=== PATIENT | male | born 1950 | race Caucasian/White ===

== ENCOUNTER 2016-07-29 11:10 | Emergency (ER) | payer MEDICARE, OTHER ==
--- NOTE | 2016-07-29 12:31 | RAD ---
LEFT FOOT 3 VIEWS: Date: 07/29/16 Comparison made with the 10/02/15 study. FINDINGS: There has been a prior amputation of the first and second toes at the level of the mid metatarsals. There are no current findings of osteomyelitis. The appearance of the remaining first and second met atarsals has not changed. There may have been old injury or infection to the third metatarsal, but i t appearance has not changed. There is perhaps a little more fragmentation between the third metatar elieser head and the base of the proximal phalanx of the third toe than was present on the prior study. Hammertoe deformities are present in the third, fourth, and fifth toes, with medial deviation of tho se toes. No new bony lesions were detected. No acute fractures were seen. A small calcaneal spur was noted as usual, as well as arterial calcifications. There is perhaps a little more soft tissue swel ling dorsally today than before. IMPRESSION: 1. No acute bony changes. Old changes as noted above. 2. Slightly more fragmentation of bone in the third metatarsophalangeal joint which could be due to some degeneration over time. There is no overt destruction here that would make me think infection at this point. POS: FRANKLIN
[2016-07-29 12:39] LABS: #Basophils 0.1 thou/uL (0.0-0.2); #Eosinphils 0.2 thou/uL (0.0-0.7); #Lymphocytes 2.3 thou/uL (1.20-3.40); #Monocytes 0.6 thou/uL (0.11-0.59); #Neutrophils 6.7 thou/uL (1.40-6.50); %Basophils 0.8 % (0.0-1.0); %Eosinophils 2.4 % (0.0-10.0); %Monocytes 6.4 % (0.0-10.0); Hematocrit 41.5 % (42.0-52.0); Mean Platelet Volume 8.5 fL (7.4-10.4); Red Blood Cell (RBC) Count 4.56 mill/uL (4.70-6.10); White Blood Cell (WBC) Count 9.9 thou/uL (4.8-10.8)
[2016-07-29 12:54] LABS: ALT (SGPT) 20 U/L (0-55); AST (SGOT) 18 U/L (5-34); Alkaline Phosphatase 95 U/L (40-150); Anion Gap 14 mmol/L (10-20); BUN (Urea Nitrogen) 32 mg/dL (8.4-25.7); Bilirubin, Total 0.4 mg/dL (0.2-1.2); Calc. Creatinine Clearance 0 mL/min (70-130); Calcium 9.3 mg/dL (7.8-10.44); Carbon Dioxide 24 mmol/L (23-31); Chloride 104 mmol/L (98-107); Estimated GFR-MDRD 28; Globulin 3.6 g/dL (2.4-3.5); Protein, Total 7.1 g/dL (5.8-8.1)
[2016-07-29 13:03] LABS: Bilirubin Negative (Negative); Blood, Urine Trace (Negative); Glucose, Urine (Dipstick) 500 mg/dL (Negative); Ketone, Urine Negative (Negative); Nitrite Negative (Negative); Protein, Urine (Dipstick) > or equal to 300 mg/dL (Neg-Trace); Urobilinogen 0.2 mg/dL (0.2-1.0)
[2016-07-29 13:16] LABS: Bacteria/HPF Rare-Few HPF (None Seen); RBC/HPF 0-3 HPF (0-3); Squamous Epithelial 0-3 HPF (0-3)
[2016-07-29] MEDS ORDERED: Piperacillin/Tazobactam 3.375 GM VIAL ONE (13:30)
[2016-07-29] MEDS ORDERED: Sodium Chloride 0.9% 100 ML ONE (13:31)
[2016-07-29] MEDS ORDERED: HYDROcodone/Acetaminophen 5/325 mg Tablet ONE (14:29)
--- NOTE | 2016-07-29 15:17 | ERRECORD ---
[facility] EMERGENCY RECORD HPI FOOT (12:20 JPIP) CHIEF COMPLAINT: Patient presents for evaluation of pain, to the left foot, Patient presents for evaluation of swelling, to the left foot, Patient presents for evaluation of tenderness, to the left foot, Patient presents for evaluation of inability to bear weight, to the left foot. HISTORIAN: History provided by patient. MECHANISM OF INJURY: Unknown mechanism. LOCATION: Symptoms are localized, most severe to arch and plantar area. QUALITY: Pain is dull in nature. SEVERITY: Current severity of pain rated as 5/10. TIME COURSE: Gradual onset of symptoms, 4, days priror to arrival, Symptoms are worsening, are constant. ASSOCIATED WITH: No associated ankle pain, No associated coolness to touch, Associated with erythema, No associated fever, Associated with inability to ambulate, for 1 day, Associated with inability to bear weight, for 1 day, No associated open wounds, Associated with warmth. EXACERBATED BY: Patient's condition exacerbated by walking. RELIEVED BY: Patient's condition relieved by nothing. ROS (12:21 JPIP) CONSTITUTIONAL: Historian denies chills, denies fever. CARDIOVASCULAR: Historian denies chest pain. RESPIRATORY: Historian denies cough, denies shortness of breath. GI: Historian denies nausea, denies vomiting. MUSCULOSKELETAL: Historian reports arthralgias, reports joint swelling, reports myalgias. SKIN: Historian reports skin changes. NEUROLOGIC: Historian denies mental status changes. NOTES: All systems reviewed, negative except as described above. PAST MEDICAL HISTORY MEDICAL HISTORY: , Tetanus immunization up to date, Pneumococcal vaccine up to date, REFLUX, Past medical history includes cardiac history, myocardial infarction, Past medical history includes history of diabetes, Type II, on insulin, Past medical history includes history of hypertension, Patient is compliant, Past medical history includes history of malignancy, carcinoid, LEFT LOWER EXTREMITY. BRADYCARDIA. (11:21 JSMI) Notes: +nephropathy. 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 . (11:21 JSMI) PSYCHIATRIC HISTORY: No previous psychiatric history. REVIEWED 10/02/15. (11:21 JSMI) &a-1R&a+25V*p+0X*o5052W*c202B*c15G*c2P*p-0X&a-25V&a+1R Name: Davis Finney : 1950 M66 MedRec: [id number] AcctNum: [id number] Prepared: MonJul 29, 2016 15:15 by Interface Page 1 of 5 pMD [facility] EMERGENCY RECORD SOCIAL HISTORY: Patient has no smoking history, Patient denies alcohol use, Patient denies drug use. (11:21 JSMI) FAMILY HISTORY: Family history is non-contributory to this case. REVIEWED 10/02/15. (11:21 JSMI) NOTES: Nursing records reviewed, Medication list reviewed. (12:25 JP) KNOWN ALLERGIES No Known Drug Allergies traMADol (Unconfirmed): - HEADACHE CURRENT MEDICATIONS (11:17 JSMI) NexIUM: CAPSULE,DELAYED RELEASE (ENTERIC COATED) : Strength - 40 mg : ORAL Patient Dose: Unknown. lisinopril: TABLET : Strength - 40 mg : ORAL Patient Dose: Unknown. hydrochlorothiazide: TABLET : Strength - 25 mg : ORAL Patient Dose: Unknown. Levemir FlexTouch: INSULIN PEN (ML) : Strength - 100 unit/mL (3 mL) : SUBCUTANEOUS Patient Dose: Unknown. hydrALAZINE: TABLET : Strength - 25 mg : ORAL Patient Dose: Unknown. amLODIPine: TABLET : Strength - 10 mg : ORAL Patient Dose: Unknown. meTOPROLOL tartrate: TABLET : Strength - 100 mg : ORAL Patient Dose: Unknown. clindamycin HCl: CAPSULE : Strength - 300 mg : ORAL Patient Dose: 1 cap(s) Oral 3 times a day. VITAL SIGNS VITAL SIGNS: BP: 177/86, Pulse: 83, Resp: 18, Temp: 98.1 (Oral), Pain: 5, O2 sat: 96 on Room Air, Time: 07/29/2016 11:18. (11:18 JSMI) BP: 166/80, Pulse: 78, Resp: 18, O2 sat: 97 on Room Air, Time: 07/29/2016 12:15. (12:15 [facility]) BP: 166/80, Pulse: 72, Resp: 16, Pain: 5, O2 sat: 98 on ra, Time: 07/29/2016 12:25. (12:25 JSMI) BP: 175/78, Pulse: 67, Resp: 18, Pain: 4, O2 sat: 98 on Room Air, Time: 07/29/2016 13:30. (13:30 AHOO) BP: 200/90, Pulse: 64, Resp: 18, Temp: 98.1 (Oral), Pain: 2, O2 sat: 97 on Room Air, Time: 07/29/2016 14:31. (14:31 AHOO) PHYSICAL EXAM (12:22 JPIP) &a-1R&a+25V*p+0X*[id number]*c202B*c15G*c2P*p-0X&a-25V&a+1R Name: Davis Finney : 1950 M66 MedRec: [id number] AcctNum: [id number] Prepared: MonJul 29, 2016 15:15 by Interface Page 2 of 5 pMD [facility] EMERGENCY RECORD CONSTITUTIONAL: Vital Signs Reviewed, Patient afebrile, Pulse normal, Blood pressure, hypertensive, Respiratory rate normal, Patient appears, poorly groomed, Patient appears, in mild pain distress, Patient alert and oriented to person, place and time, Nursing notes reviewed. HEAD: Head exam included findings of head atraumatic, normocephalic. EYES: Eye exam included findings of eyelids normal to inspection, Conjunctiva normal, Sclera normal, no periorbital ecchymosis, no periorbital edema, no periorbital erythema. NECK: Neck exam included findings of normal range of motion, Trachea midline, no cervical adenopathy. RESPIRATORY CHEST: Respiratory exam included findings of no respiratory distress, Breath sounds clear, No wheezing, No rales, No rhonchi, Breath sounds not absent, Breath sounds not diminished. CARDIOVASCULAR: Cardiovascular exam included findings of heart rate regular rate and rhythm, Heart sounds normal. UPPER EXTREMITY: Upper extremity exam included findings of inspection normal, Range of motion normal. LOWER EXTREMITY: Lower extremity exam included findings of inspection abnormal, swollen left foot, +plantar erythema and TTP. both feet are dirt encrusted., Range of motion, capillary refill less than 2 seconds, Foot exam shows, surgical amputation of the 1st and 2nd toes. +swelling + erythema of the arch and anterior calcaneus, skin is intact, no DC. NEURO: [place] coma scale 15, no focal motor deficits. SKIN: Skin exam included findings of skin warm, dry, and normal in color, changes to the skin of his left foot. PSYCHIATRIC: Normal affect. RADIOLOGYINTERPRETATION (12:27 JPIP) LOWER EXTREMITIES: Foot films, of the left foot show, degenerative joint disease, Other findings: +STS, amputation of 1st and 2nd toes. MEDICATION ADMINISTRATION SUMMARY Drug Name: [place], Dose Ordered: 5 mg, Route: Oral, Status: Given, Time: 14:30 07/29/2016, Drug Name: Zosyn, Dose Ordered: 3.375 g, Route: IV Piggy Back, Status: Given, Time: 13:42 07/29/2016, Drug Name: Normal Saline, Dose Ordered: 1000 mL/hr, Route: IV Fluid Infusion, Status: Given, Time: 13:23 07/29/2016, Detailed record available in Medication Service section. DOCTOR NOTES (14:22 JPIP) TEXT: Discussed findings with patient and spouse, questions answered. Precautions given. Patient states he did not take his insulin or his blood pressure &a-1R&a+25V*p+0X*c0656P*c202B*c15G*c2P*p-0X&a-25V&a+1R Name: Davis Finney : 1950 M66 MedRec: [id number] AcctNum: [id number] Prepared: MonJul 29, 2016 15:15 by Interface Page 3 of 5 pMD [facility] EMERGENCY RECORD meds this AM. PROBLEM LIST No recorded problems DIAGNOSIS DIFFERENTIAL: Based on history, exam and ancillary studies if indicated: there is no evidence for fracture, there is no evidence for dislocation, there is no evidence for sprain, Impression: gout, Impression: left foot, there is no evidence for skin disruption, there is no evidence for DVT, Impression: Most likely gout exacerbation, DDX includes possible cellulitis, there is no evidence for systemic illness, there is no evidence for toxicity, there is no evidence for sepsis, there is no evidence for systemic inflammatory response syndrome, Impression: diabetes, Diagnoses considered are not limited to those documented above. (13:51 JPIP) FINAL: PRIMARY: GOUT UNSPECIFIED, ADDITIONAL: diabetes mellitis, renal insufficiency, UTI. (13:54 JPIP) PRESCRIPTION colchicine oral: TABLET : 0.6 mg : ORAL : Quantity: See note Unit: Route: ORAL Schedule: See Notes Dispense: 3 May substitute. Refills: No Refills . (13:49 JPIP) NOTES: Take 2 now then take 1 in one hour No refills. (13:49 JPIP) Tylenol-Codeine #3: TABLET : 300 mg-30 mg : ORAL : Quantity: 1-2 Unit: tab(s) Route: ORAL Schedule: every 6 hours PRN Dispense: 30 May substitute. Refills: No Refills POTENTIAL ALLERGY REACTION: 'traMADol [tramadol/tramadol HCl]' Override Rationale: Not a true drug allergy, tramadol "doesn't work" "doesn't help my pain". (13:50 JPIP) NOTES: No refills. (13:50 JPIP) Septra DS: TABLET : 800 mg-160 mg : ORAL : Quantity: 1 Unit: tab(s) Route: ORAL Schedule: 2 times a day Dispense: 20 May substitute. Refills: No Refills POTENTIAL SEVERE INTERACTION: lisinopril Override Rationale: Benefits outweigh risks. (13:55 JPIP) NOTES: No refills. (13:55 JPIP) allopurinol: TABLET : 100 mg : ORAL : Quantity: 1 Unit: tab(s) Route: ORAL Schedule: once a day Dispense: 30 May substitute. Refills: No Refills . (14:24 JPIP) NOTES: Do not start medication until pain in your foot has stopped. No refills. (14:24 JPIP) Jeremiah, adult (14:41 JPIP) NOTES: Dispense One No refills. (14:41 JPIP) &a-1R&a+25V*p+0X*w0223T*c202B*c15G*c2P*p-0X&a-25V&a+1R Name: Fede Finneyabad Toscano : 1950 M66 MedRec: [id number] AcctNum: [id number] Prepared: MonJul 29, 2016 15:15 by Interface Page 4 of 5 pMD [facility] EMERGENCY RECORD DISPOSITION PATIENT: Disposition Type: Discharge, Disposition: *Discharge Home, Condition: Good. (14:22 JPIP) Patient left the department. (15:10 AHOO) Gonzales: AHOO=BHASKAR PedersenOctober JPIP=DO Shanks Joseph JSMI=SINA Gordon, Ariana &a-1R&a+25V*p+0X*n5279Z*c202B*c15G*c2P*p-0X&a-25V&a+1R Name: SharminDavis : 1950 M66 MedRec: [id number] AcctNum: [id number] Prepared: MonJul 29, 2016 15:15 by Interface Page 5 of 5 pMD MTDD
--- NOTE | 2016-07-29 15:22 | PICIS ---
[facility] EMERGENCY RECORD TRIAGE (MonJul 29, 2016 11:15 JSMI) PATIENT: NAME: Davis Finney, AGE: 66, GENDER: male, : Sat 1950, TIME OF GREET: MonJul 29, 2016 11:11, PREFERRED LANGUAGE: Amharic, ETHNICITY: Not or , ECODE BILLING MAP: [facility], SSN: [id number], Zip Code: [address], KG WEIGHT: 97.52, PHONE: , , , PERSON ID: [id number], PAYMENT: [employer] Medicare, PCP: MD Ames Warren. (MonJul 29, 2016 11:15 JSMI) COMPLAINT: left foot pain. (MonJul 29, 2016 11:15 JSMI) ADMISSION: URGENCY: 5 Fast Track, ADMISSION SOURCE: Home, TRANSPORT: CAR, BED: ER -01. (MonJul 29, 2016 11:15 JSMI) ASSESSMENT: Assessment: PT PRESENTS AWAKE ALERT AND ORIENTED. SKIN PINK WARM AND DRY., Symptoms began 07/25/2016. (11:21 JSMI) SIRS SCORING: Heart Rate 55-109 (0), Temp range 96.8-101.1 (0), respiratory rate 12-24 (0), Mental Status altered: no (0), Infection or Suspected Infection: No. (11:21 JSMI) PROVIDERS: TRIAGE NURSE: Ariana Gordon RN. (MonJul 29, 2016 11:15 JSMI) VITAL SIGNS: BP 177/86, Pulse 83, Resp 18, Temp 98.1, (Oral), Pain 5, O2 Sat 96, on Room Air, Time 07/29/2016 11:18. (11:18 JSMI) PREVIOUS VISIT ALLERGIES: traMADol. (MonJul 29, 2016 11:15 JSMI) traMADol. (11:21 JSMI) KNOWN ALLERGIES No Known Drug Allergies traMADol (Unconfirmed): - HEADACHE CURRENT MEDICATIONS (11:17 JSMI) NexIUM: CAPSULE,DELAYED RELEASE (ENTERIC COATED) : Strength - 40 mg : ORAL Patient Dose: Unknown. lisinopril: TABLET : Strength - 40 mg : ORAL Patient Dose: Unknown. hydrochlorothiazide: TABLET : Strength - 25 mg : ORAL Patient Dose: Unknown. Levemir FlexTouch: INSULIN PEN (ML) : Strength - 100 unit/mL (3 mL) : SUBCUTANEOUS Patient Dose: Unknown. hydrALAZINE: TABLET : Strength - 25 mg : ORAL Patient Dose: Unknown. amLODIPine: TABLET : Strength - 10 mg : ORAL Patient Dose: Unknown. meTOPROLOL tartrate: TABLET : Strength - 100 mg : ORAL Patient Dose: Unknown. clindamycin HCl: &a-1R&a+25V*p+0X*y6887U*c202B*c15G*c2P*p-0X&a-25V&a+1R Name: Davis Finney : 1950 M66 MedRec: [id number] AcctNum: [id number] Prepared: MonJul 29, 2016 15:20 by Interface Page 1 of 10 pMD [facility] EMERGENCY RECORD CAPSULE : Strength - 300 mg : ORAL Patient Dose: 1 cap(s) Oral 3 times a day. VITAL SIGNS VITAL SIGNS: BP: 177/86, Pulse: 83, Resp: 18, Temp: 98.1 (Oral), Pain: 5, O2 sat: 96 on Room Air, Time: 07/29/2016 11:18. (11:18 JSMI) BP: 166/80, Pulse: 78, Resp: 18, O2 sat: 97 on Room Air, Time: 07/29/2016 12:15. (12:15 AHOO) BP: 166/80, Pulse: 72, Resp: 16, Pain: 5, O2 sat: 98 on ra, Time: 07/29/2016 12:25. (12:25 JSMI) BP: 175/78, Pulse: 67, Resp: 18, Pain: 4, O2 sat: 98 on Room Air, Time: 07/29/2016 13:30. (13:30 AHOO) BP: 200/90, Pulse: 64, Resp: 18, Temp: 98.1 (Oral), Pain: 2, O2 sat: 97 on Room Air, Time: 07/29/2016 14:31. (14:31 AHOO) NURSING ASSESSMENT: EXTREMITY LOWER (11:21 JSMI) CONSTITUTIONAL: Complex assessment performed, Patient arrives ambulatory, Gait steady, History obtained from patient, Patient appears comfortable, Patient cooperative, Patient alert, Oriented to person, place and time, Skin warm, Skin dry, Skin normal in color, Patient complains of left foot pain. PAIN: aching pain, to the left foot, on a scale 0-10 patient rates pain as 7. LEFT LOWER EXTREMITY: Left lower extremity assessment findings include capillary refill less than 2 seconds, Skin color normal, Skin temperature warm, Distal sensation intact, Muscle tone normal, Inspection findings include swelling. RIGHT LOWER EXTREMITY: Right lower extremity assessment findings include capillary refill less than 2 seconds, Skin color normal, Skin temperature warm, Distal sensation intact, Muscle tone normal. NURSING PROCEDURE: DISCHARGE NOTE (14:45 AHOO) DISCHARGE: Patient discharged to home, in a wheelchair, family driving, accompanied by //partner, Summary of Care printed/ provided, Transition record given to patient, Discharge instructions given to patient, Discharge instructions given to PT SPOUSE, Prescriptions given and instructions on side effects given, Above person(s) verbalized understanding of discharge instructions and follow-up care, Patient treated and evaluated by physician, Notes: PT BP ELEVATED AND HE IS SYMPTOMATIC, INSTRUCTED HIM TO TAKE HIS MEDS WHEN HE GETS HOME, PER ER MD NITISH TO DC PT WITH CURRENT VS. PT ASYMPTOMATIC. NURSING PROCEDURE: IV IV SITE 1: IV established, to the right wrist, using an 18 gauge catheter, in one attempt, IV site prepped with chlorahexadine, Saline lock established. (12:25 JSMI) IV SITE 2: IV established, to the right antecubital, using an 18 gauge catheter, in one attempt, IV site prepped with chlorahexadine, Saline lock established. (13:23 JSMI) &a-1R&a+25V*p+0X*b1120O*c202B*c15G*c2P*p-0X&a-25V&a+1R Name: Davis Finney : 1950 M66 MedRec: [id number] AcctNum: [id number] Prepared: MonJul 29, 2016 15:20 by Interface Page 2 of 10 pMD [facility] EMERGENCY RECORD FOLLOW-UP SITE 1: IV discontinued, catheter intact, Notes: Unable to flush IV without a lot of resistance. No redness or swelling noted around site. IV DC'd. (13:26 JSMI) FOLLOW-UP SITE 2: After procedure, 2x2 dressing applied, After procedure, no drainage at IV site, After procedure, no swelling at IV site, After procedure, no redness at IV site. (14:42 AHOO) VITAL SIGNS: BP: 166, / 80, Pulse: 72, Resp: 16, Pain: 5, O2 sat: 98, on: ra. (12:25 JSMI) NURSING PROCEDURE: NURSE NOTES (12:33 JSMI) NURSES NOTES: Notes: Pt remains asymptomatic. ORDER DETAILS Order Name: CBC with Differential, Status: Active, Time: 12:14 07/29/2016, User: TARIQ, - Ordered for: DO Shanks Joseph, - Entered by: DO Shanks Joseph - MonJul 29, 2016 12:14, - Quantity: 1, Order Name: Comprehensive Metabolic Panel, Status: Active, Time: 12:14 07/29/2016, User: TARIQ, - Ordered for: DO Shanks Joseph, - Entered by: DO Shanks Joseph - MonJul 29, 2016 12:14, - Quantity: 1, Order Name: Culture, Blood, Status: Active, Time: 12:14 07/29/2016, User: TARIQ, - Ordered for: DO Shanks Joseph, - Entered by: DO Shanks Joseph - MonJul 29, 2016 12:14, - Quantity: 1, Order Name: Culture, Urine, Status: Active, Time: 12:46 07/29/2016, User: TARIQ, - Ordered for: DO Shanks Joseph, - Entered by: DO Shanks Joseph - MonJul 29, 2016 12:46, - Quantity: 1, Order Name: SALINE LOCK, Status: Done, Time: 12:25 07/29/2016, User: ANNA, - Ordered for: DO Shanks Joseph, - Entered by: DO Shanks Joseph - MonJul 29, 2016 12:15, - Quantity: 1, Order Name: Uric Acid, Status: Active, Time: 12:14 07/29/2016, User: TARIQ, - Ordered for: DO Shanks Joseph, - Entered by: DO Shanks Joseph - MonJul 29, 2016 12:14, - Quantity: 1, Order Name: Urinalysis w/ Rflx Microscopic, Status: Active, Time: 12:14 07/29/2016, User: TARIQ, - Ordered for: DO Shanks Joseph, - Entered by: DO Shanks Joseph - MonJul 29, 2016 12:14, - Quantity: 1, Order Name: XR Foot Lt 3 View STANDARD, Status: Active, Time: 11:24 &a-1R&a+25V*p+0X*l7462D*c202B*c15G*c2P*p-0X&a-25V&a+1R Name: Davis Finney : 1950 M66 MedRec: [id number] AcctNum: [id number] Prepared: MonJul 29, 2016 15:20 by Interface Page 3 of 10 pMD [facility] EMERGENCY RECORD 07/29/2016, User: TARIQ, - Ordered for: DO Shanks Joseph, - Entered by: DO Shanks Joseph - MonJul 29, 2016 11:24, - Quantity: 1. MEDICATION ADMINISTRATION SUMMARY Drug Name: [place], Dose Ordered: 5 mg, Route: Oral, Status: Given, Time: 14:30 07/29/2016, Drug Name: Zosyn, Dose Ordered: 3.375 g, Route: IV Piggy Back, Status: Given, Time: 13:42 07/29/2016, Drug Name: Normal Saline, Dose Ordered: 1000 mL/hr, Route: IV Fluid Infusion, Status: Given, Time: 13:23 07/29/2016, Detailed record available in Medication Service section. MEDICATION SERVICE White [place]: Order: [place] (hydrocodone bitartrate/acetaminophen) - Dose: 5 mg : Oral POTENTIAL ALLERGY REACTION: 'traMADol [tramadol/tramadol HCl]' - Not a true drug allergy Schedule: Now Ordered by: Adolfo Shanks DO Entered by: Adolfo Shanks DO MonJul 29, 2016 13:55 , Acknowledged by: Padmini Pedersen LVN MonJul 29, 2016 14:28 Documented as given by: Padmini Pedersen LVN MonJul 29, 2016 14:30 Patient, Medication, Dose, Route and Time verified prior to administration. Amount given: 5MG, Correct patient, time, route, dose and medication confirmed prior to administration, Patient advised of actions and side-effects prior to administration, Allergies confirmed and medications reviewed prior to administration, Patient in position of comfort, Side rails up, Cart in lowest position, Family at bedside. : Follow Up : Response assessment performed, No signs or symptoms of allergic reaction noted. (14:45 AHOO) Normal Saline: Order: Normal Saline (0.9 % sodium chloride) - Dose: 1000 mL/hr : IV Fluid Infusion Schedule: Now Ordered by: Adolfo Shanks DO Entered by: Adolfo Shanks DO MonJul 29, 2016 13:00 , Acknowledged by: Padmini Pedersen LVN MonJul 29, 2016 13:01 Documented as given by: Ariana Gordon RN MonJul 29, 2016 13:23 Patient, Medication, Dose, Route and Time verified prior to administration. IV SITE #1 IV fluids established for hydration, IV SITE #1 1st bag hung, amount 1 Liter hung, IV SITE #1 Rate of bolus, wide open, via gravity tubing, Catheter placement confirmed via flush prior to administration, IV site without signs or symptoms of infiltration during medication administration, No swelling during administration, No drainage during administration, IV flushed after administration, Correct patient, time, route, dose and medication confirmed prior to &a-1R&a+25V*p+0X*y7460K*c202B*c15G*c2P*p-0X&a-25V&a+1R Name: Davis Finney : 1950 M66 MedRec: [id number] AcctNum: [id number] Prepared: MonJul 29, 2016 15:20 by Interface Page 4 of 10 pMD [facility] EMERGENCY RECORD administration, Patient advised of actions and side-effects prior to administration, Allergies confirmed and medications reviewed prior to administration, Friend at bedside. : Follow Up : Response assessment performed, No signs or symptoms of allergic reaction noted, _IV SITE #1:_, IV fluid infusion discontinued, on MonJul 29, 2016 14:35, Total fluid hydration time IV site 1 1 hour, 15 minutes, ., Total amount infused: 1 L, IV Line flushed after administration. (14:35 AHOO) Zosyn: Order: Zosyn (piperacillin sodium/tazobactam sodium) - Dose: 3.375 g : IV Piggy Back Schedule: Now Ordered by: Adolfo Shanks DO Entered by: Adolfo Shanks DO MonJul 29, 2016 12:43 , Acknowledged by: Padmini Pedersen LVN MonJul 29, 2016 13:01 Documented as given by: Ariana Gordon RN MonJul 29, 2016 13:42 Patient, Medication, Dose, Route and Time verified prior to administration. IV SITE #1 IVPB or drip, initial infusion, IVPB mixed in: 100ml, Fluid: 0.9NS, Catheter placement confirmed via flush prior to administration, IV site without signs or symptoms of infiltration during medication administration, No swelling during administration, No drainage during administration, IV flushed after administration, Correct patient, time, route, dose and medication confirmed prior to administration, Patient advised of actions and side-effects prior to administration, Allergies confirmed and medications reviewed prior to administration, Patient in position of comfort, Side rails up, Cart in lowest position. : Follow Up : Response assessment performed, No signs or symptoms of allergic reaction noted, _IV SITE #1:_, Medication infusion discontinued, on MonJul 29, 2016 14:42, Total infusion time IV site 1 1 hour, ., Total amount infused: 100ML, IV Discontinued with catheter intact. (14:22 OO) HPI FOOT (12:20 [facility]) CHIEF COMPLAINT: Patient presents for evaluation of pain, to the left foot, Patient presents for evaluation of swelling, to the left foot, Patient presents for evaluation of tenderness, to the left foot, Patient presents for evaluation of inability to bear weight, to the left foot. HISTORIAN: History provided by patient. MECHANISM OF INJURY: Unknown mechanism. LOCATION: Symptoms are localized, most severe to arch and plantar area. QUALITY: Pain is dull in nature. SEVERITY: Current severity of pain rated as 5/10. TIME COURSE: Gradual onset of symptoms, 4, days priror to arrival, Symptoms are worsening, are constant. ASSOCIATED WITH: No associated ankle pain, No associated coolness to touch, Associated with erythema, No associated fever, Associated with inability to ambulate, for 1 &a-1R&a+25V*p+0X*z9334M*c202B*c15G*c2P*p-0X&a-25V&a+1R Name: Davis Finney : 1950 M66 MedRec: [id number] AcctNum: [id number] Prepared: MonJul 29, 2016 15:20 by Interface Page 5 of 10 pMD [facility] EMERGENCY RECORD day, Associated with inability to bear weight, for 1 day, No associated open wounds, Associated with warmth. EXACERBATED BY: Patient's condition exacerbated by walking. RELIEVED BY: Patient's condition relieved by nothing. ROS (12:21 JPIP) CONSTITUTIONAL: Historian denies chills, denies fever. CARDIOVASCULAR: Historian denies chest pain. RESPIRATORY: Historian denies cough, denies shortness of breath. GI: Historian denies nausea, denies vomiting. MUSCULOSKELETAL: Historian reports arthralgias, reports joint swelling, reports myalgias. SKIN: Historian reports skin changes. NEUROLOGIC: Historian denies mental status changes. NOTES: All systems reviewed, negative except as described above. PAST MEDICAL HISTORY MEDICAL HISTORY: , Tetanus immunization up to date, Pneumococcal vaccine up to date, REFLUX, Past medical history includes cardiac history, myocardial infarction, Past medical history includes history of diabetes, Type II, on insulin, Past medical history includes history of hypertension, Patient is compliant, Past medical history includes history of malignancy, carcinoid, LEFT LOWER EXTREMITY. BRADYCARDIA. (11:21 JSMI) Notes: +nephropathy. 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 . (11:21 JSMI) PSYCHIATRIC HISTORY: No previous psychiatric history. REVIEWED 10/02/15. (11:21 JSMI) SOCIAL HISTORY: Patient has no smoking history, Patient denies alcohol use, Patient denies drug use. (11:21 JSMI) FAMILY HISTORY: Family history is non-contributory to this case. REVIEWED 16. (11:21 JSMI) NOTES: Nursing records reviewed, Medication list reviewed. (12:25 JPIP) PHYSICAL EXAM (12:22 JPIP) CONSTITUTIONAL: Vital Signs Reviewed, Patient afebrile, Pulse normal, Blood pressure, hypertensive, Respiratory rate normal, Patient appears, poorly groomed, Patient appears, in mild pain distress, Patient alert and oriented to person, place and time, Nursing notes reviewed. HEAD: Head exam included findings of head atraumatic, normocephalic. EYES: Eye exam included findings of eyelids normal to inspection, Conjunctiva normal, Sclera normal, no periorbital ecchymosis, no &a-1R&a+25V*p+0X*n7638B*c202B*c15G*c2P*p-0X&a-25V&a+1R Name: Davis Finney : 1950 M66 MedRec: [id number] AcctNum: [id number] Prepared: MonJul 29, 2016 15:20 by Interface Page 6 of 10 pMD [facility] EMERGENCY RECORD periorbital edema, no periorbital erythema. NECK: Neck exam included findings of normal range of motion, Trachea midline, no cervical adenopathy. RESPIRATORY CHEST: Respiratory exam included findings of no respiratory distress, Breath sounds clear, No wheezing, No rales, No rhonchi, Breath sounds not absent, Breath sounds not diminished. CARDIOVASCULAR: Cardiovascular exam included findings of heart rate regular rate and rhythm, Heart sounds normal. UPPER EXTREMITY: Upper extremity exam included findings of inspection normal, Range of motion normal. LOWER EXTREMITY: Lower extremity exam included findings of inspection abnormal, swollen left foot, +plantar erythema and TTP. both feet are dirt encrusted., Range of motion, capillary refill less than 2 seconds, Foot exam shows, surgical amputation of the 1st and 2nd toes. +swelling + erythema of the arch and anterior calcaneus, skin is intact, no DC. NEURO: [place] coma scale 15, no focal motor deficits. SKIN: Skin exam included findings of skin warm, dry, and normal in color, changes to the skin of his left foot. PSYCHIATRIC: Normal affect. LAB INTERPRETATION (13:46 JPIP) INTERPRETATION: I reviewed the lab results, All labs normal except as noted below, CBC abnormal, White blood cell count normal, Hemoglobin decreased, Hematocrit decreased, Chemistry abnormal, Glucose elevated, BUN elevated, Creatinine elevated, Liver functions normal, Urinalysis abnormal, positive for leukocytes, ketones negative, positive for glucose, positive for protein, uric acid 9.1. EVENTS TRANSFER: Triage to Emergency Emergency Room -. (MonJul 29, 2016 11:15 JSMI) Removed from Emergency Emergency Room -01. (15:10 OO) RADIOLOGYINTERPRETATION (12:27 JPIP) LOWER EXTREMITIES: Foot films, of the left foot show, degenerative joint disease, Other findings: +STS, amputation of 1st and 2nd toes. O2SAT INTERPRETATION (11:23 JPIP) O2SAT: Single pulse oximetry, Oxygen saturation 96%, on room air, Oxygen saturation interpretation: Normal, No intervention required, Intervention required: patient observed. DOCTOR NOTES (14:22 JPIP) TEXT: Discussed findings with patient and spouse, questions &a-1R&a+25V*p+0X*p0843S*c202B*c15G*c2P*p-0X&a-25V&a+1R Name: Davis Finney : 1950 M66 MedRec: [id number] AcctNum: [id number] Prepared: MonJul 29, 2016 15:20 by Interface Page 7 of 10 pMD [facility] EMERGENCY RECORD answered. Precautions given. Patient states he did not take his insulin or his blood pressure meds this AM. PROBLEM LIST No recorded problems DIAGNOSIS DIFFERENTIAL: Based on history, exam and ancillary studies if indicated: there is no evidence for fracture, there is no evidence for dislocation, there is no evidence for sprain, Impression: gout, Impression: left foot, there is no evidence for skin disruption, there is no evidence for DVT, Impression: Most likely gout exacerbation, DDX includes possible cellulitis, there is no evidence for systemic illness, there is no evidence for toxicity, there is no evidence for sepsis, there is no evidence for systemic inflammatory response syndrome, Impression: diabetes, Diagnoses considered are not limited to those documented above. (13:51 JPIP) FINAL: PRIMARY: GOUT UNSPECIFIED, ADDITIONAL: diabetes mellitis, renal insufficiency, UTI. (13:54 JPIP) DISPOSITION PATIENT: Disposition Type: Discharge, Disposition: *Discharge Home, Condition: Good. (14:22 JPIP) Patient left the department. (15:10 OO) INSTRUCTION (14:24 JPIP) DISCHARGE: GOUTY ARTHRITIS, UTI CYSTITIS MALE ADULT. FOLLOWUP: MD Hui, [facility], [address] [place] [address] [address], [facility] [address], . SPECIAL: Follow up with Primary Care Physician within 72 hours Return to the Emergency Department for increased symptoms problems or concerns. PRESCRIPTION colchicine oral: TABLET : 0.6 mg : ORAL : Quantity: See note Unit: Route: ORAL Schedule: See Notes Dispense: 3 May substitute. Refills: No Refills . (13:49 JPIP) NOTES: Take 2 now then take 1 in one hour No refills. (13:49 JPIP) Tylenol-Codeine #3: TABLET : 300 mg-30 mg : ORAL : Quantity: 1-2 Unit: tab(s) Route: ORAL Schedule: every 6 hours PRN Dispense: 30 May substitute. Refills: No Refills POTENTIAL ALLERGY REACTION: 'traMADol [tramadol/tramadol HCl]' Override Rationale: Not a true drug allergy, tramadol "doesn't work" "doesn't help my pain". (13:50 JPIP) NOTES: No refills. (13:50 JPIP) Septra DS: TABLET : 800 mg-160 mg : ORAL : Quantity: 1 &a-1R&a+25V*p+0X*j6873U*c202B*c15G*c2P*p-0X&a-25V&a+1R Name: Davis Finney : 1950 M66 MedRec: [id number] AcctNum: [id number] Prepared: MonJul 29, 2016 15:20 by Interface Page 8 of 10 pMD [facility] EMERGENCY RECORD Unit: tab(s) Route: ORAL Schedule: 2 times a day Dispense: 20 May substitute. Refills: No Refills POTENTIAL SEVERE INTERACTION: lisinopril Override Rationale: Benefits outweigh risks. (13:55 JPIP) NOTES: No refills. (13:55 JPIP) allopurinol: TABLET : 100 mg : ORAL : Quantity: 1 Unit: tab(s) Route: ORAL Schedule: once a day Dispense: 30 May substitute. Refills: No Refills . (14:24 JPIP) NOTES: Do not start medication until pain in your foot has stopped. No refills. (14:24 JPIP) kamran Daniels (14:41 JPIP) NOTES: Dispense One No refills. (14:41 JPIP) IMAGING (15:05 [facility]) *DISCHARGE INSTRUCTIONS RECEIPT: Image captured from scanner. *SUPPLY CHARGE SHEET: Image captured from scanner. RESULTS LABORATORY: CBC with Differential Collection DT: MonJul 29, 2016 12:37, White Blood Cell (WBC) Count 9.9 thou/uL, Range (4.8-10.8), *Red Blood Cell (RBC) Count 4.56 - L mill/uL, Range (4.70-6.10), *Hemoglobin 13.5 - L g/dL, Range (14.0-18.0), *Hematocrit 41.5 - L %, Range (42.0-52.0), Mean Corpuscular Volume 90.8 fl, Range (80.0-94.0), Mean Corpuscular Hemoglobin 29.6 pg, Range (27.0-31.0), Mean Corpuscular HGB CONC 32.6 g/dL, Range (32.0-36.0), RBC Distribution Width 11.8 %, Range (11.5-14.5), Platelet Count 272 thou/uL, Range (130-400), Mean Platelet Volume 8.5 fL, Range (7.4-10.4), %Neutrophils 67.4 %, Range (42.0-75.0), %Lymphocytes 23.0 %, Range (21.0-51.0), %Monocytes 6.4 %, Range (0.0-10.0), %Eosinophils 2.4 %, Range (0.0-10.0), %Basophils 0.8 %, Range (0.0-1.0), *#Neutrophils 6.7 - H thou/uL, Range (1.40-6.50), #Lymphocytes 2.3 thou/uL, Range (1.20-3.40), *#Monocytes 0.6 - H thou/uL, Range (0.11-0.59), #Eosinphils 0.2 thou/uL, Range (0.0-0.7), #Basophils 0.1 thou/uL, Range (0.0-0.2). (12:42 JP) Uric Acid Collection DT: MonJul 29, 2016 12:37, *Uric Acid 9.1 - H mg/dL, Range (3.5-7.2). (12:59 [facility]) Comprehensive Metabolic Panel Collection DT: MonJul 29, 2016 12:37, Sodium 138 mmol/L, Range (136-145), Potassium 4.4 mmol/L, Range (3.5-5.1), Chloride 104 mmol/L, Range (98-107), Carbon Dioxide 24 mmol/L, Range (23-31), &a-1R&a+25V*p+0X*k0840J*c202B*c15G*c2P*p-0X&a-25V&a+1R Name: Davis Finney : 1950 M66 MedRec: [id number] AcctNum: [id number] Prepared: MonJul 29, 2016 15:20 by Interface Page 9 of 10 pMD [facility] EMERGENCY RECORD Anion Gap 14 mmol/L, Range (10-20), *BUN (Urea Nitrogen) 32 - H mg/dL, Range (8.4-25.7), *Creatinine 2.31 - H mg/dL, Range (0.7-1.3), Estimated GFR-MDRD 28 , Reference Range for Estimated GFR: Greater than 90, mL/min/1.73 m2 NOTE: The MDRD equation has not been validated for use, with the elderly (over 70 years of age), women, patients with, serious comorbid condition or persons with extremes of body size, muscle, mass, or nutritional status. , *Glucose 395 - H mg/dL, Range (80-115), Calcium 9.3 mg/dL, Range (7.8-10.44), Bilirubin, Total 0.4 mg/dL, Range (0.2-1.2), Protein, Total 7.1 g/dL, Range (5.8-8.1), NOTE: Plasma values are generally 0.3 to 0.5 g/dL higher than serum values, due to the presence of fibrinogen. , Albumin 3.5 g/dL, Range (3.4-4.8), *Globulin 3.6 - H g/dL, Range (2.4-3.5), *Alb/Glob Ratio 1.0 - L g/dL, Range (1.2-2.2), Alkaline Phosphatase 95 U/L, Range (40-150), AST (SGOT) 18 U/L, Range (5-34), ALT (SGPT) 20 U/L, Range (0-55). (12:59 JPIP) Urine Microscopic Collection DT: MonJul 29, 2016 13:01, RBC/HPF 0-3 HPF, Range (0-3), *WBC/HPF 11-20 - H HPF, Range (0-3), Squamous Epithelial 0-3 HPF, Range (0-3), Bacteria/HPF Rare-Few HPF, Range (None Seen). (13:20 JPIP) Urinalysis w/ Rflx Microscopic Collection DT: MonJul 29, 2016 13:01, Color Yellow , Range (Yellow), Clarity Clear , Range (Clear), Specific [place], Urine 1.020 , Range (1.005-1.030), pH, Urine 7.0 , Range (5.0-9.0), *Leukocyte Trace - H , Range (Negative), Nitrite Negative , Range (Negative), *Protein, Urine (Dipstick) > or equal to 300 - mg/dL, * H , Range (Neg-Trace), *Glucose, Urine (Dipstick) 500 - H mg/dL, Range (Negative), Ketone, Urine Negative mg/dL, Range (Negative), Urobilinogen 0.2 mg/dL, Range (0.2-1.0), Bilirubin Negative , Range (Negative), *Blood, Urine Trace - H , Range (Negative). (13:20 JPIP) Gonzales: [facility]=[place] Pedersen, October JPIP=DO Shanks Joseph JSMI=SINA Gordon, Ariana &a-1R&a+25V*p+0X*[id number]*c202B*c15G*c2P*p-0X&a-25V&a+1R Name: Davis Finney : 1950 [id number] MedRec: [id number] AcctNum: [id number] Prepared: MonJul 29, 2016 15:20 by Interface Page 10 of 10 pMD MTDD
== END 2016-07-29 14:45 | disposition home or self-care (01) ==
LOC: BURERS 11:10
DX: M10.9 Gout, unspecified (principal); E11.9 Type 2 diabetes mellitus without complications; N39.0 Urinary tract infection, site not specified; N28.9 Disorder of kidney and ureter, unspecified; I25.2 Old myocardial infarction; I10 Essential (primary) hypertension
CPT/HCPCS: 80053; 81003; 81015; 84550; 85025; 87040; 87077; 87086; 87186; 96365; J2543; J7050

== ENCOUNTER 2016-08-17 15:45 | Emergency (ER) | payer MEDICARE, OTHER ==
[2016-08-17 16:36] LABS: #Basophils 0.1 thou/uL (0.0-0.2); #Eosinphils 0.1 thou/uL (0.0-0.7); #Lymphocytes 2.1 thou/uL (1.20-3.40); #Monocytes 1.5 thou/uL (0.11-0.59); #Neutrophils 13.1 thou/uL (1.40-6.50); %Basophils 0.6 % (0.0-1.0); %Eosinophils 0.3 % (0.0-10.0); %Monocytes 8.7 % (0.0-10.0); Hematocrit 33.3 % (42.0-52.0); Mean Platelet Volume 7.5 fL (7.4-10.4); Red Blood Cell (RBC) Count 3.69 mill/uL (4.70-6.10); White Blood Cell (WBC) Count 16.8 thou/uL (4.8-10.8)
[2016-08-17 16:42] LABS: Lactic Acid - Sepsis 1.9 mmol/L (0.5-2.2)
[2016-08-17 16:49] LABS: ALT (SGPT) 14 U/L (0-55); AST (SGOT) 21 U/L (5-34); Alkaline Phosphatase 92 U/L (40-150); Anion Gap 17 mmol/L (10-20); BUN (Urea Nitrogen) 46 mg/dL (8.4-25.7); Bilirubin, Total 0.4 mg/dL (0.2-1.2); Calc. Creatinine Clearance 0 mL/min (70-130); Carbon Dioxide 18 mmol/L (23-31); Chloride 99 mmol/L (98-107); Estimated GFR-MDRD 23; Globulin 4.1 g/dL (2.4-3.5); Protein, Total 7.1 g/dL (5.8-8.1)
[2016-08-17] MEDS ORDERED: Insulin Regular 300 UNITS/3 ML VIAL ONE (17:04)
[2016-08-17] MEDS ORDERED: Sodium Chloride 0.9% 100 ML ONE (17:22)
[2016-08-17] MEDS ORDERED: Piperacillin/Tazobactam 3.375 GM VIAL ONE (17:22)
--- NOTE | 2016-08-17 17:28 | CT ---
CT OF THE LEFT FOOT WITHOUT CONTRAST 08/17/16 Comparison is made with a 07/29/16 plain film study. Axial slices were acquired, then coronal and sag ittal reconstructions were done. There is a large amount of soft tissue gas present in this patient's foot. It is mostly on the media l side posteriorly, medial to the calcaneus and then it extends up to about the proximal tarsal leve l and wraps onto the plantar aspect of the foot. There is one particularly large gas collection pres ent, though most of the gas is in very small pockets. An incidental finding is a small 7 to 8 mm met allic foreign body on the plantar aspect of the foot that is visible in retrospect on the recent lakshmi in film. The bulk of the soft tissue air is not around this object, though it was not present on a plain film study. Regarding the bones themselves, there were no areas of obvious destruction to suggest osteomyelitis. MRI would be more sensitive to detecting such, however. There were a few lucencies in the talus ant eriorly that may just be due to osteoporosis or other causes. The cortex round them looks normal and I doubt their importance. 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 IMPRESSION: 1. Development of extensive soft tissue gas in the medial posterior foot and wrapping around to the plantar aspect of the foot. It tracks as far anteriorly as the proximal tarsals. Severe infecti ons, including a necrotizing fasciitis, must be considered. Referral and aggressive treatment is in order. 2. Small 7 to 8 mm metallic foreign body in the soft tissues of the plantar aspect of the foot. This was not present in September 2015. I would note that most of the gas is remote from this location. Findings discussed with Dr. Cortez at 1700 on 08/17/16. POS: HOME
== END 2016-08-17 18:15 | disposition short-term general hospital (02) ==
LOC: BURERS 15:45
DX: L03.116 Cellulitis of left lower limb (principal); K21.9 Gastro-esophageal reflux disease without esophagitis; I25.2 Old myocardial infarction; E11.9 Type 2 diabetes mellitus without complications; I10 Essential (primary) hypertension; Z79.2 Long term (current) use of antibiotics; Z79.4 Long term (current) use of insulin; Z79.899 Other long term (current) drug therapy
CPT/HCPCS: 36416; 80053; 83605; 85025; 87040; 96365; 96375; J1815; J2543; J3370; J7050

== ENCOUNTER 2016-11-04 11:13 | Outpatient (CLI) | payer MEDICARE, MEDICAID, OTHER ==
[2016-11-04 12:23] LABS: Hemoglobin 13.9 g/dL (14.0-18.0)
[2016-11-04 12:39] LABS: Anion Gap 14 mmol/L (10-20); BUN (Urea Nitrogen) 33 mg/dL (8.4-25.7); Calc. Creatinine Clearance 0 mL/min (70-130); Calcium 8.6 mg/dL (7.8-10.44); Carbon Dioxide 24 mmol/L (23-31); Chloride 104 mmol/L (98-107); Estimated GFR-MDRD 28; Glucose 221 mg/dL (80-115); Potassium 3.6 mmol/L (3.5-5.1); Sodium 138 mmol/L (136-145)
== END 2016-11-04 11:14 | disposition home or self-care (01) ==
LOC: BURLAB 11:13
PROVIDERS: ATTEND Internal Medicine Nephrology
DX: E78.2 Mixed hyperlipidemia (principal); I12.9 Hypertensive chronic kidney disease with stage 1 through stage 4 chronic kidney disease, or unspecified chronic kidney disease; N18.4 Chronic kidney disease, stage 4 (severe); D63.1 Anemia in chronic kidney disease; E11.40 Type 2 diabetes mellitus with diabetic neuropathy, unspecified; R53.82 Chronic fatigue, unspecified
CPT/HCPCS: 36415; 80048; 85014; 85018

== ENCOUNTER 2017-01-09 12:49 | Outpatient (CLI) | payer MEDICARE, OTHER ==
[2017-01-09 13:18] LABS: Hemoglobin 13.9 g/dL (14.0-18.0)
[2017-01-09 13:20] LABS: Anion Gap 15 mmol/L (10-20); BUN (Urea Nitrogen) 41 mg/dL (8.4-25.7); Calc. Creatinine Clearance 0 mL/min (70-130); Calcium 8.7 mg/dL (7.8-10.44); Carbon Dioxide 22 mmol/L (23-31); Chloride 108 mmol/L (98-107); Estimated GFR-MDRD 23; Glucose 312 mg/dL (80-115); Potassium 4.5 mmol/L (3.5-5.1); Sodium 140 mmol/L (136-145)
[2017-01-10 15:55] LABS: Creatinine, Urine 68.52 mg/dL (63-166)
== END 2017-01-09 12:50 | disposition home or self-care (01) ==
LOC: BURLAB 12:49
PROVIDERS: ATTEND Internal Medicine Nephrology
DX: E11.22 Type 2 diabetes mellitus with diabetic chronic kidney disease (principal); I12.9 Hypertensive chronic kidney disease with stage 1 through stage 4 chronic kidney disease, or unspecified chronic kidney disease; N18.4 Chronic kidney disease, stage 4 (severe); R80.9 Proteinuria, unspecified
CPT/HCPCS: 36415; 80048; 82306; 82570; 83970; 84156; 85014; 85018